=== PATIENT | male | born 1975 | race Two or more races ===

== ENCOUNTER 2018-07-23 09:30 | Inpatient (IN) | payer OTHER ==
[~2018-07-23] VITALS: Ht 177.8 cm; Wt 102.5 kg
== END 2018-07-30 12:27 | disposition home or self-care (01) | DRG 658 ==
LOC: CIR.AMB 09:30 → EDSTATUS 09:30 → ADM 09:30 → O/R 07-27 06:05 → SURG 07-27 06:05 → SURH 07-27 07:00 → SURG 07-27 11:56 → SURH 07-27 16:43 → SURG 07-28 10:51
PROVIDERS: ADMIT Urology
PROC: 0TT14ZZ Resection of Left Kidney, Percutaneous Endoscopic Approach (ICD-10-PCS; principal; 2018-07-27 07:00)
DX: C64.2 Malignant neoplasm of left kidney, except renal pelvis (principal)

== ENCOUNTER → 2022-08-02 | Emergency (ER) | payer OTHER ==
[~2022-08-02] VITALS: Ht 177.8 cm; Wt 102.1 kg
== END | disposition home or self-care (01) ==
LOC: ER 01:42
DX: S22.41XA Multiple fractures of ribs, right side, initial encounter for closed fracture (principal); W05.2XXA Fall from non-moving motorized mobility scooter, initial encounter; Y93.I9 Activity, other involving external motion; Y92.413 State road as the place of occurrence of the external cause; Z88.6 Allergy status to analgesic agent